=== PATIENT | male | born 2000 | race American Indian/Alaskan Native ===

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

== ENCOUNTER 2018-01-13 20:35 | Emergency (ER) | payer MEDICAID, OTHER ==
[2018-01-13] MEDS ORDERED: MOTRIN PO ONE (21:24)
[2018-01-13] MEDS ORDERED: DECADRON IM ONE (23:38)
[2018-01-13] MEDS ORDERED: BENADRYL PO ONE (23:38)
[2018-01-13] MEDS ORDERED: AUGMENTIN 875 MG PO ONE (23:39)
--- NOTE | 2018-01-14 00:18 | Emergency Department Report ---
- General Chief Complaint: Upper Respiratory Infection Stated Complaint: FEVER,SORE THROAT Time Seen by Provider: 01/13/18 23:34 Source: patient Mode of arrival: Ambulatory Limitations: No Limitations - History of Present Illness Initial Comments: Patient 17-year-old male with history of sinusitis recurrent who presents for rhinorrhea frontal and maxillary sinus pain and pressure sore throat and ear pain past 3 days symptoms exacerbated by movement symptoms relieved by nothing patient has attempted [id number] nasal spray states no relieving nasal congestion patient states fever but no MAXIMUM TEMPERATURE to 100.1 in triage improved with ibuprofen given in ED MD Complaint: fever, sore throat, rhinorrhea, nasal congestion, sinus pain Onset/Timin -: week(s) Severity: moderate Severity scale (0 -10): 5 Quality: sharp, aching Consistency: constant Improves With: nothing Worsens With: activity, other (movement ) Associated Symptoms: fever, chills, rhinorrhea, nasal congestion, ear pain - Related Data Previous Rx's Medication Instructions Recorded Last Taken Type Cyclobenzaprine [Flexeril] 10 mg PO TID PRN #12 tablet 04/08/17 Unknown Rx Ibuprofen [Motrin] 800 mg PO Q8HR PRN #30 tablet 04/08/17 Unknown Rx Amoxicillin/Potassium Clav 1 each PO BID #20 tablet 01/14/18 Unknown Rx [Augmentin 875-125 Tablet] Ibuprofen 800 mg PO TID PRN #30 tablet 01/14/18 Unknown Rx Oxymetazoline 0.05% [Afrin] 2 spray NS BID 3 Days #1 bottle 01/14/18 Unknown Rx Allergies Allergy/AdvReac Type Severity Reaction Status Date / Time No Known Allergies Allergy Verified 01/13/18 23:36 ED Review of Systems ROS: Stated complaint: FEVER,SORE THROAT Other details as noted in HPI Constitutional: chills, fever Eyes: denies: eye pain, eye discharge, vision change ENT: ear pain, throat pain, congestion (results are discharged in about her) Respiratory: denies: cough, shortness of breath, wheezing (prior to the brow) Cardiovascular: denies: chest pain, palpitations Endocrine: no symptoms reported Gastrointestinal: denies: abdominal pain, nausea, vomiting, diarrhea Genitourinary: denies: urgency, dysuria, frequency Musculoskeletal: denies: back pain, joint swelling, arthralgia Skin: denies: rash, lesions Neurological: denies: headache, weakness, paresthesias Psychiatric: denies: anxiety, depression Hematological/Lymphatic: denies: easy bleeding, easy bruising ED Past Medical Hx - Past Medical History Previous Medical History?: No - Surgical History Past Surgical History?: No - Social History Smoking Status: Never Smoker Substance Use Type: None - Medications Home Medications: Home Medications Medication Instructions Recorded Confirmed Last Taken Type Cyclobenzaprine [Flexeril] 10 mg PO TID PRN #12 tablet 04/08/17 Unknown Rx Ibuprofen [Motrin] 800 mg PO Q8HR PRN #30 tablet 04/08/17 Unknown Rx Amoxicillin/Potassium Clav 1 each PO BID #20 tablet 01/14/18 Unknown Rx [Augmentin 875-125 Tablet] Ibuprofen 800 mg PO TID PRN #30 tablet 01/14/18 Unknown Rx Oxymetazoline 0.05% [Afrin] 2 spray NS BID 3 Days #1 bottle 01/14/18 Unknown Rx ED Physical Exam - General Limitations: No Limitations General appearance: alert, in no apparent distress - Head Head exam: Present: atraumatic, normocephalic - Eye Eye exam: Present: normal appearance - Expanded ENT Exam Expanded Ear exam: Present: normal external inspection TM/Canal exam: Erythema: Left TM, Effusion: Left TM, Canal Tenderness: Left TM Mouth exam: Present: normal external inspection, other (bilat frontal and maxillary sinus pain to palpation ). Absent: trismus Teeth exam: Present: normal inspection Throat exam: Positive: tonsillar erythema. Negative: tonsillomegaly, tonsillar exudate, R peritonsillar mass, L peritonsillar mass - Neck Neck exam: Present: normal inspection, full ROM, lymphadenopathy. Absent: tenderness, thyromegaly - Respiratory Respiratory exam: Present: normal lung sounds bilaterally. Absent: respiratory distress, wheezes, stridor, chest wall tenderness - Cardiovascular Cardiovascular Exam: Present: regular rate, normal rhythm. Absent: systolic murmur, diastolic murmur, rubs, gallop - GI/Abdominal GI/Abdominal exam: Present: soft, normal bowel sounds. Absent: bruit, hernia - Rectal Rectal exam: Present: deferred - Extremities Exam Extremities exam: Present: normal inspection - Back Exam Back exam: Present: normal inspection - Neurological Exam Neurological exam: Present: alert, oriented X3, normal gait - Psychiatric Psychiatric exam: Present: normal affect, normal mood - Skin Skin exam: Present: warm, dry, intact, normal color. Absent: rash ED Course Vital Signs 01/13/18 01/13/18 20:40 20:41 Temperature 100.1 F H Pulse Rate 98 H 104 H Respiratory 20 20 Rate Blood Pressure 138/76 O2 Sat by Pulse 96 96 Oximetry ED Medical Decision Making - Medical Decision Making This is a recurring sinusitis with left ear infection plan Augmentin ibuprofen and Afrin patient will follow up with PCP in 2-3 days patient is not [place] 3 tolerating by mouth intake without symptoms there is no vertigo Critical care attestation.: If time is entered above; I have spent that time in minutes in the direct care of this critically ill patient, excluding procedure time. ED Disposition Clinical Impression: Sinusitis Qualifiers: Sinusitis location: maxillary Chronicity: acute Recurrence: recurrent Qualified Code(s): J01.01 - Acute recurrent maxillary sinusitis AOM (acute otitis media) Qualifiers: Otitis media type: serous Laterality: left Recurrence: not specified as recurrent Qualified Code(s): H65.02 - Acute serous otitis media, left ear Disposition: DC-01 TO HOME OR SELFCARE Is pt being admited?: No Does the pt Need Aspirin: No Condition: Good Instructions: Sinusitis (ED), Otitis Media (ED) Prescriptions: Amoxicillin/Potassium Clav [Augmentin 875-125 Tablet] 1 each PO BID #20 tablet Ibuprofen 800 mg PO TID PRN #30 tablet PRN Reason: pain fever Oxymetazoline 0.05% [Afrin] 2 spray NS BID 3 Days #1 bottle Referrals: [facility] [Outside] - 3-5 Days Forms: Work/School Release Form(ED) Time of Disposition: 00:24
[2018-01-14 00:31] VITALS: BP 140/80
== END 2018-01-14 00:31 | disposition home or self-care (01) ==
LOC: ED 20:35
DX: J01.01 Acute recurrent maxillary sinusitis (principal); H65.02 Acute serous otitis media, left ear
CPT/HCPCS: 87116; 87430; 96372; 99283; J1100

== ENCOUNTER 2018-10-28 19:47 | Emergency (ER) | payer OTHER ==
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
--- NOTE | 2018-10-28 23:34 | XRay Report ---
PROCEDURE: XR HAND 2V RT TECHNIQUE: Right hand 2 views HISTORY: punched a wall having pain in hand and wrist COMPARISONS: FINDINGS: No fracture identified. No dislocation seen. Joint spaces are within normal limits. No radiopaque for eign bodies are observed. IMPRESSION: Negative hand series. This document is electronically signed by Dale Lopez MD., October 28 2018 11:32:52 PM ET
--- NOTE | 2018-10-29 00:20 | XRay Report ---
PROCEDURE: XR WRIST 2V RT TECHNIQUE: Right wrist 3 views HISTORY: punched a wall having pain in hand and wrist COMPARISONS: FINDINGS: No fracture identified. No dislocation seen. The carpal bones demonstrate normal alignment. Distal ra dius and ulna are intact. IMPRESSION: Negative wrist series. This document is electronically signed by Dale Lopez MD., October 29 2018 12:18:45 AM ET
--- NOTE | 2018-10-29 00:56 | Emergency Department Report ---
Upper Extremity - HPI Chief Complaint: Extremity Injury, Upper Stated Complaint: RT ARM PAIN AND SWOLLEN Time Seen by Provider: 10/29/18 00:46 Upper Extremity: Right Hand Occurred When: Today Mechanism: Hit with Object Severity: mild Symptoms: Yes Pain with Movement, Yes Laceration or Abrasion (mild abrasion), No Deformity, No Limited Range of Movement, No Numbness, No Weakness, No Swelling, No Bruising/Ecchymosis Other History: Patient is a 18-year-old male presents ED complaining of right hand pain after he got angry and punched a wall earlier today. ED Review of Systems ROS: Stated complaint: RT ARM PAIN AND SWOLLEN Other details as noted in HPI Comment: All other systems reviewed and negative ED Past Medical Hx - Past Medical History Previous Medical History?: No - Surgical History Past Surgical History?: No - Social History Smoking Status: Never Smoker Substance Use Type: None - Medications Home Medications: Home Medications Medication Instructions Recorded Confirmed Last Taken Type Cyclobenzaprine [Flexeril] 10 mg PO TID PRN #12 tablet 04/08/17 Unknown Rx Amoxicillin/Potassium Clav 1 each PO BID #20 tablet 01/14/18 Unknown Rx [Augmentin 875-125 Tablet] Ibuprofen 800 mg PO TID PRN #30 tablet 01/14/18 Unknown Rx Oxymetazoline 0.05% [Afrin] 2 spray NS BID 3 Days #1 bottle 01/14/18 Unknown Rx Bacitracin Zinc Oint [Antibiotic 1 applicatio TP BID #1 tube 10/29/18 Unknown Rx Oint] Ibuprofen [Motrin 800 MG tab] 800 mg PO Q8HR PRN #30 tablet 10/29/18 Unknown Rx Upper Extremity Exam - Exam General: Vital signs noted. No distress. Alert and acting appropriately. Head and Torso: No HEENT Abnormality, No Neck Tenderness, No Chest/Lungs Abnormality, No Abdominal Tenderness, No Back Tenderness Shoulder Exam: Yes Normal Range of Motion in Shoulder, No Shoulder Tenderness, No Clavicle Tenderness, No Shoulder Deformity, No AC Joint Tenderness Arm Exam: No Arm/Humerus Tenderness, No Arm Deformity Elbow: No Elbow Tenderness, No Normal Range of Motion in Elbow, No Elbow Deformity Forearm: No Forearm Tenderness, No Forearm Deformity, No Pain with Pronation, No Pain with Supination Wrist: Yes Normal ROM in Wrist, No Wrist Tenderness, No Wrist Deformity, No Snuffbox Tenderness, No Pain with Axial Thumb Compression Hand: Yes Hand Tenderness, Yes Normal ROM in Digit(s), No Hand Deformity, No Digit Tenderness, No Digit(s) Deformity, No Tendon Dysfunction CMS Exam: Yes Broken Skin (mild abrasion to posterior hand), No Normal Distal Pulses, No Normal Capillary Refill, No Normal Distal Sensation Hand L/R Back: 1 - Mild abrasions noted, nonbleeding 2 - Moderate abrasions noted, no bleeding ED Course Vital Signs 10/28/18 10/28/18 20:14 20:35 Temperature 98.5 F 98.5 F Pulse Rate 91 H 92 H Respiratory 18 18 Rate Blood Pressure 130/77 130/77 O2 Sat by Pulse 98 98 Oximetry ED Medical Decision Making - Radiology Data Radiology results: report reviewed, image reviewed PROCEDURE: XR HAND 2V RT TECHNIQUE: Right hand 2 views HISTORY: punched a wall having pain in hand and wrist COMPARISONS: FINDINGS: No fracture identified. No dislocation seen. Joint spaces are within normal limits. No radiopaque foreign bodies are observed. IMPRESSION: Negative hand series. This document is electronically signed by Dale Jo MD., October 28 2018 11:32:52 PM ET Transcribed By: HAYLEY Dictated By: MIRNA JO MD Electronically Authenticated By: MIRNA JO MD Signed Date/Time: 10/28/18 8268 - Medical Decision Making 18-year-old male presents with pain from punching a wall. X-ray shows no acute findings no fractures or dislocation. Discussed with patient findings from x-ray. Vital signs are normal patient is in acute distress. Discussed follow-up with primary care physician Critical care attestation.: If time is entered above; I have spent that time in minutes in the direct care of this critically ill patient, excluding procedure time. ED Disposition Clinical Impression: Abrasion, Hand pain, right Disposition: DC-01 TO HOME OR SELFCARE Is pt being admited?: No Does the pt Need Aspirin: No Condition: Stable Instructions: Arthralgia (ED), Abrasion (ED) Additional Instructions: Make sure to follow up with the primary care physician as discussed. Take all your medications as you've been prescribed. If you have any worsening symptoms or develop new symptoms please return to ED immediately. Prescriptions: Bacitracin Zinc Oint [Antibiotic Oint] 1 applicatio TP BID #1 tube Ibuprofen [Motrin 800 MG tab] 800 mg PO Q8HR PRN #30 tablet PRN Reason: Pain Referrals: JANAE MCDERMOTT MD [Primary Care Provider] - 3-5 Days RIA JOHANSEN MD [Staff Physician] - 3-5 Days Forms: Work/School Release Form(ED) Time of Disposition: 00:54
[2018-10-29 01:07] VITALS: BP 125/85
== END 2018-10-29 01:08 | disposition home or self-care (01) ==
LOC: ED 19:47
DX: S60.511A Abrasion of right hand, initial encounter (principal); W22.01XA Walked into wall, initial encounter; Y93.89 Activity, other specified; Y92.89 Other specified places as the place of occurrence of the external cause; Y99.8 Other external cause status